=== PATIENT | female | born 1995 | race Caucasian/White ===

== ENCOUNTER 2020-11-17 20:39 | Emergency (ER) | payer MEDICAID ==
[2020-11-17 20:47] VITALS: BP 128/85
[2020-11-17] MEDS ORDERED: CLINDAMYCIN 150 MG CAPSULE PO STA (20:52)
--- NOTE | 2020-11-17 20:54 | ED Physician Documentation ---
PD HPI HEENT - Stated complaint Stated Complaint: NASAL REDNESS/SWELLING - Chief complaint Chief Complaint: Heent - History obtained from History obtained from: Patient - Additional information Additional information: 25-year-old woman who is breast-feeding but who has no possibility of per presents with right-sided nasal pain for 2 weeks. It kind of went away and then came back. It is tender to the touch. No fevers. No history of staph or MRSA. 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 - Present Medications Home Medications: Ambulatory Orders Medication Instructions Recorded Confirmed Mupirocin 2% Oint [Bactroban 2% 1 applic ELISE BID #50 gm 11/17/20 Oint] clindamycin HCL [Cleocin HCl] 300 mg PO QID #28 cap 11/17/20 - Allergies Allergies/Adverse Reactions: Allergies Allergy/AdvReac Type Severity Reaction Status Date / Time No Known Drug Allergies Allergy Verified 11/17/20 20:47 - Social History Does the pt smoke?: No Smoking Status: Never smoker Does the pt drink ETOH?: No Does the pt have substance abuse?: No - Immunizations Immunizations are current?: No - POLST Patient has POLST: No PD ED PE NORMAL - Vitals Vital signs reviewed: Yes - General General: Alert and oriented X 3, No acute distress - HEENT HEENT: Other (She has what looks like a staphylococcal infection on the inside of the right nares. Nothing is expressed to though and there is no fluctuance.) - Neck Neck: Supple, no meningeal sign, No bony TTP - Back Back: No CVA TTP, No spinal TTP - Derm Derm: Normal color, Warm and dry - Extremities Extremities: No edema, No calf tenderness / cord - Neuro Neuro: Alert and oriented X 3, Normal speech Results - Vitals Vitals: Vital Signs - 24 hr 11/17/20 20:40 Temperature 36.5 C Heart Rate 80 Respiratory 16 Rate Blood Pressure 128/85 H O2 Saturation 100 Oxygen O2 Source Room air Departure - Departure Disposition: 01 Home, Self Care Clinical Impression: Staph skin infection Condition: Good Record reviewed to determine appropriate education?: Yes Instructions: ED Staph Infec Abx Tx Only Prescriptions: Mupirocin 2% Oint [Bactroban 2% Oint] 1 applic ELISE BID #50 gm clindamycin HCL [Cleocin HCl] 300 mg PO QID #28 cap Comments: This looks like a staphylococcal infection inside of your right nares. Using clindamycin since you are breast-feeding and the antibiotic ointment as well. Return if worsening.
== END 2020-11-17 20:58 | disposition home or self-care (01) ==
LOC: ED 20:39
DX: L08.9 Local infection of the skin and subcutaneous tissue, unspecified (principal); B95.8 Unspecified staphylococcus as the cause of diseases classified elsewhere
CPT/HCPCS: 99282; 99283; A9270

== ENCOUNTER 2021-01-28 21:28 | Emergency (ER) | payer MEDICAID ==
[2021-01-28 21:36] VITALS: BP 124/87
[2021-01-28] MEDS ORDERED: levonorgestreL 1.5 MG TABLET PO STA (22:18)
--- NOTE | 2021-01-29 07:14 | ED Physician Documentation ---
History of Present Illness - Stated complaint Stated Complaint: FEMALE - Chief complaint Chief Complaint: General - History obtained from History obtained from: Patient - History of Present Illness Pain level now: 0 - Additonal information Additional information: patient states I just need emergency contraception. She had unprotected intercourse yesterday midday. She says she contacted her primary care provider but cannot be seen for another few days and patient perceives that she only has 48 hours from the UPI to take emergency contraception. She says she cannot take Alena due to breast feeding. She has no symptoms such as pain, vaginal bleeding, discharge. 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 - Present Medications Home Medications: Ambulatory Orders Medication Instructions Recorded Confirmed Mupirocin 2% Oint [Bactroban 2% 1 applic ELISE BID #50 gm 11/17/20 Oint] clindamycin HCL [Cleocin HCl] 300 mg PO QID #28 cap 11/17/20 - Allergies Allergies/Adverse Reactions: Allergies Allergy/AdvReac Type Severity Reaction Status Date / Time No Known Drug Allergies Allergy Verified 11/17/20 20:47 - Social History Does the pt smoke?: No Smoking Status: Never smoker Does the pt drink ETOH?: No Does the pt have substance abuse?: No - Immunizations Immunizations are current?: No - POLST Patient has POLST: No PD ED PE NORMAL - Vitals Vital signs reviewed: Yes - General General: Alert and oriented X 3, No acute distress, Well developed/nourished - Abdomen Abdomen: Soft, Non tender Results - Vitals Vitals: Vital Signs - 24 hr 01/28/21 21:33 Temperature 36.6 C Heart Rate 85 Respiratory 14 Rate Blood Pressure 124/87 H O2 Saturation 97 Oxygen O2 Source Room air PD MEDICAL DECISION MAKING - ED course Complexity details: considered differential, d/w patient ED course: presents asymptomatic, requesting plan B (per patient) or other similar emergency contraception. She is given 1.5 mg PO levonorgestrel and discharged. Departure - Departure Disposition: 01 Home, Self Care Clinical Impression: Emergency contraception Condition: Good Instructions: ED Contraception Emergency Plan B Discharge Date/Time: 01/28/21 22:34
== END 2021-01-28 22:34 | disposition home or self-care (01) ==
LOC: ED 21:28
DX: Z30.012 Encounter for prescription of emergency contraception (principal)
CPT/HCPCS: 99282; 99283

== ENCOUNTER 2021-03-13 11:45 | Emergency (ER) | payer MEDICAID ==
[2021-03-13 12:14] VITALS: BP 131/91
--- NOTE | 2021-03-13 12:31 | ED Physician Documentation ---
PD HPI LOWER EXT INJURY - Stated complaint Stated Complaint: RT ANKLE INJURY - Chief complaint Chief Complaint: Ext Problem - History obtained from History obtained from: Patient - History of Present Illness PD HPI LOW EXT INJURY LOCATION: Right, Ankle Type of injury: Twist (She jumped out of bed and landed onto her right ankle with the crack feeling in onset of pain yesterday evening. Continues with increased pain and swelling and unable to bear weight today.) Where injury occurred: Home Timing - onset: Last night Timing - details: Abrupt onset, Still present Worsened by: Moving, Palpating, Other (weight bearing) Associated symptoms: Swelling. 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 - Present Medications Home Medications: Ambulatory Orders Medication Instructions Recorded Confirmed Mupirocin 2% Oint [Bactroban 2% 1 applic ELISE BID #50 gm 11/17/20 Oint] clindamycin HCL [Cleocin HCl] 300 mg PO QID #28 cap 11/17/20 - Allergies Allergies/Adverse Reactions: Allergies Allergy/AdvReac Type Severity Reaction Status Date / Time No Known Drug Allergies Allergy Verified 03/13/21 12:14 - Social History Does the pt smoke?: No Smoking Status: Never smoker Does the pt drink ETOH?: No Does the pt have substance abuse?: No - Immunizations Immunizations are current?: No - POLST Patient has POLST: No PD ED PE NORMAL - Vitals Vital signs reviewed: Yes - General General: Alert and oriented X 3, Well developed/nourished - Derm Derm: Normal color, Warm and dry - Extremities Extremities: Other (right ankle with swelling and effusion lateral malleolus. Achilles and heel not tender. Some medial tenderness. Pain inhibits good stress testing. Normal pulses/color/cap refill in foot/toes.) - Neuro Neuro: No motor deficit, No sensory deficit Results - Vitals Vitals: Oxygen O2 Source Room air - Labs Labs: Laboratory Tests 03/13/21 12:45 Urine HCG, Qual NEGATIVE - Rads (name of study) right ankle Radiology: Prelim report reviewed (swelling/effusion, no fractures. ), See rad report PD MEDICAL DECISION MAKING - ED course Complexity details: reviewed results (no fractures), considered differential, d/w patient Departure - Departure Disposition: 01 Home, Self Care Clinical Impression: Ankle sprain Qualifiers: Encounter type: initial encounter Involved ligament of ankle: anterior ta lofibular ligament Laterality: right Qualified Code(s): S93.491A - Sprain of other ligament of right ankle, initial encounter Condition: Stable Record reviewed to determine appropriate education?: Yes Instructions: ED Sprain Ankle W X Ray Comments: Your x-ray does not show any fractures. Obviously with the swelling and pain, this would indicate a good sprain of the ankle and this can take several weeks or a month to heal as well. Use the ankles brace when ambulatory over the next few weeks until it feels fully healed. You may want to wear the brace even when sleeping and resting for the first several days to week to help support the ankle and reduce pain. Ice elevate and rest your ankle often to reduce swelling over the next several days. Activity as tolerated with partial to no weightbearing as needed with use of crutches. Add weightbearing as tolerated for discomfort. I would anticipate improvement over the next several days to week and then resolution over several weeks. Recheck if not improving in that timeframe. Tylenol or ibuprofen as needed for pains. Discharge Date/Time: 03/13/21 13:46
[2021-03-13] MEDS ORDERED: HYDROcod/ACETAM 5/325 MG TABLET PO STA (12:45)
[2021-03-13] MEDS ORDERED: IBUPROFEN 600 MG TABLET PO STA (12:45)
--- NOTE | 2021-03-13 12:52 | XRAY Report ---
PROCEDURE: Ankle 2 View RT INDICATIONS: jumped off the bed , now non wt bearing TECHNIQUE: 2 views of the ankle were acquired. COMPARISON: None FINDINGS: Bones: No fractures or dislocations. Ankle mortise is normally aligned. No suspicious bony lesions . Soft tissues: There is soft tissue swelling by the lateral malleolus. Small tibiotalar joint effusion . Achilles tendon appears normal. IMPRESSION: Soft tissue swelling about the lateral malleolus with a small ankle joint effusion. No f racture. Findings may represent ligamentous injury. Reviewed by: Joseph Rodríguez MD on 03/13/2021 12:51 PM PDT Approved by: Joseph Rodríguez MD on 03/13/2021 12:51 PM PDT Station ID: [id number]
[2021-03-13 12:54] LABS: HCG UR QUAL NEGATIVE
== END 2021-03-13 13:46 | disposition home or self-care (01) ==
LOC: ED 11:45
DX: S93.491A Sprain of other ligament of right ankle, initial encounter (principal); X50.1XXA Overexertion from prolonged static or awkward postures, initial encounter; Y93.39 Activity, other involving climbing, rappelling and jumping off; Y92.009 Unspecified place in unspecified non-institutional (private) residence as the place of occurrence of the external cause
CPT/HCPCS: 73600; 81025; 99282; 99283; A9270

== ENCOUNTER 2021-09-24 00:05 | Outpatient (CLI) | payer MEDICAID | END 2021-09-24 00:06 | disposition left against medical advice (07) | LOC: EMS 00:05 | DX: R42 Dizziness and giddiness (principal); R11.0 Nausea; R51.9 Headache, unspecified; R53.1 Weakness; R05.9 Cough, unspecified ==

== ENCOUNTER 2021-09-24 00:56 | Outpatient (CLI) | payer MEDICAID | END 2021-09-24 00:57 | disposition critical access hospital (66) | LOC: EMS 00:56 | DX: R11.0 Nausea (principal); R42 Dizziness and giddiness; R51.9 Headache, unspecified; R53.1 Weakness | CPT/HCPCS: A0425; A0429 ==

== ENCOUNTER 2021-09-24 01:12 | Emergency (ER) | payer MEDICAID ==
--- NOTE | 2021-09-24 02:14 | ED Physician Documentation ---
History of Present Illness - Stated complaint Stated Complaint: DIZZY - Chief complaint Chief Complaint: Neuro - Additonal information Additional information: Patient is 26-year-old female presenting to the emergency department with 1 day history cough, congestion, sinus pressure, dizziness, body aches. States fever at home for which she took ibuprofen. Reports primary complaint is prominent nasal congestion. No COVID vaccinations. Does report sick contact with known COVID-positive individual who lives in her apartment complex. 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 - Present Medications Home Medications: Ambulatory Orders Medication Instructions Recorded Confirmed No Known Home Medications 09/24/21 09/24/21 - Allergies Allergies/Adverse Reactions: Allergies Allergy/AdvReac Type Severity Reaction Status Date / Time No Known Drug Allergies Allergy Verified 09/24/21 01:26 - Social History Does the pt smoke?: Yes Smoking Status: Current every day smoker Does the pt drink ETOH?: No Does the pt have substance abuse?: No - Immunizations Immunizations are current?: No - POLST Patient has POLST: No PD ED PE NORMAL - General General: Alert and oriented X 3, No acute distress, Well developed/nourished - HEENT HEENT: Atraumatic, PERRL, Ears normal, Moist mucous membranes, Pharynx benign - Neck Neck: Supple, no meningeal sign, No bony TTP, No adenopathy, Thyroid normal, No JVD, No bruit - Cardiac Cardiac: RRR, No murmur, No gallop, No rub, Strong equal pulses - Respiratory Respiratory: No respiratory distress - Abdomen Abdomen: Normal bowel sounds, Non tender - Female Female : Deferred - Rectal Rectal: Deferred - Back Back: No CVA TTP - Derm Derm: Normal color Results - Vitals Vitals: Vital Signs - 24 hr 09/24/21 09/24/21 09/24/21 01:10 01:20 03:13 Temperature 37.0 C Heart Rate 100 97 88 Respiratory 18 16 14 Rate Blood Pressure 130/76 104/65 103/60 O2 Saturation 99 98 97 09/24/21 03:40 Temperature 37.1 C Heart Rate 105 H Respiratory 18 Rate Blood Pressure 100/57 L O2 Saturation 98 Oxygen O2 Source Room air - Labs Labs: Laboratory Tests 09/24/21 02:27 Nasal Adenovirus (PCR) NOT DETECTED Nasal B. parapertussis DNA (PCR) NOT DETECTED Nasal Coronavir 229E PCR NOT DETECTED Nasal Coronavir HKU1 PCR NOT DETECTED Nasal Coronavir NL63 PCR NOT DETECTED Nasal Coronavir OC43 PCR NOT DETECTED Nasal Enterovir/Rhinovir PCR NOT DETECTED Nasal Influenza B PCR NOT DETECTED Nasal Influenza A PCR NOT DETECTED Nasal Parainfluen 1 PCR NOT DETECTED Nasal Parainfluen 2 PCR NOT DETECTED Nasal Parainfluen 3 PCR NOT DETECTED Nasal Parainfluen 4 PCR NOT DETECTED Nasal RSV (PCR) NOT DETECTED Nasal B.pertussis DNA PCR NOT DETECTED Nasal C.pneumoniae (PCR) NOT DETECTED Carlos Human Metapneumo PCR NOT DETECTED Nasal M.pneumoniae (PCR) NOT DETECTED Nasal SARS-CoV-2 (PCR) DETECTED A PD MEDICAL DECISION MAKING - ED course Complexity details: reviewed results, d/w patient ED course: Patient is 26-year-old female presenting to the emergency department with sinus pressure and other flulike symptoms. COVID-positive in the department. Given Tylenol, nasal spray. Was offered Sudafed for oral decongestant which she declined. Discussed the diagnosis of the novel coronavirus, its expected course as well as the current CDC recommendations for quarantine both for herself and for her loved ones with whom she has been in close contact. Encourage careful follow-up with primary care. Otherwise clear return precautions and follow-up instructions given prior to discharge. Departure - Departure Disposition: 01 Home, Self Care Clinical Impression: COVID-19 Comments: Thank you for allowing us to care for you today at [facility]. Today you tested positive for the novel COVID-19 virus. It is important that you quarantine at home. Current CDC recommendation is for 5 days of quarantine from the onset of your symptoms. If at that time you are not experiencing improvement in all of your symptoms and you have been fever free for greater than 24 hours without requiring antipyretic medication such as Motrin or Tylenol at that time you are safe to leave quarantine and return to appropriately social distanced behavior. The CDC also recommends that individuals who had been in close contact with someone who is known to be posed but positiveAnd who were not fully vaccinated against the novel coronavirus should also quarantine for 5 days. For individuals who have been in close contact with the virus but who do not have symptoms and who have been fully vaccinated no quarantine is required however appropriately socially distance to behavior should be maintained. More information can be found at https://www.cdc.gov/coronavirus/2019-ncov/your-health/quarantine-isolation.html Please drink plenty of fluids and get plenty of rest. Motrin and Tylenol are excellent medications to take at home for fever, aches and pains. Please contact your primary care doctor to let them know about your diagnosis. If it anytime you develop any new or worsening symptoms please do not hesitate to return. Discharge Date/Time: 09/24/21 04:03
[2021-09-24] MEDS: ACETAMINOPHEN 325 MG TABLET PO STA (02:22)
[2021-09-24] MEDS: SODIUM CHLORIDE 0.9% 1,000 ML IV STA (02:26)
[2021-09-24] MEDS: PSEUDOEPHEDRINE 30 MG TABLET PO STA (02:29)
[2021-09-24 03:29] LABS: B. PARAPERTUSSIS- RESP PCR PAN NOT DETECTED; B. PERTUSSIS- RESP PCR PANEL NOT DETECTED; C. PNEUMONIAE- RESP PCR PANEL NOT DETECTED; CORONAVIRUS 229E-RESP PCR NOT DETECTED; CORONAVIRUS HKU1-RESP PCR NOT DETECTED; CORONAVIRUS NL63-RESP PCR NOT DETECTED; CORONAVIRUS OC43-RESP PCR NOT DETECTED; HUMAN METAPNEUMOVIRUS NOT DETECTED; INFLUENZA A- RESP PCR PANEL NOT DETECTED; INFLUENZA B - RESP PCR PANEL NOT DETECTED; M. PNEUMONIAE- RESP PCR PANEL NOT DETECTED; PARAINFLUENZA VIRUS 1 NOT DETECTED; PARAINFLUENZA VIRUS 2 NOT DETECTED; PARAINFLUENZA VIRUS 3 NOT DETECTED; PARAINFLUENZA VIRUS 4 NOT DETECTED; RHINOVIRUS/ENTEROVIRUS NOT DETECTED; RSV- RESP PCR PANEL NOT DETECTED; SARS-CoV-2 -RESP PCR PANEL DETECTED
[2021-09-24 03:49] VITALS: BP 100/57
== END 2021-09-24 04:03 | disposition home or self-care (01) ==
LOC: EDUNIT# → ED 01:12
DX: Z28.310 Unvaccinated for COVID-19 (principal); Z28.9 Immunization not carried out for unspecified reason; F17.200 Nicotine dependence, unspecified, uncomplicated
CPT/HCPCS: 87633; 99282; 99283; A9270

== ENCOUNTER 2021-10-13 13:52 | Emergency (ER) | payer MEDICAID ==
[2021-10-13 14:16] VITALS: BP 113/80
[2021-10-13 14:28] LABS: BASOPHILS % (AUTO) 0.1 %; EOSINOPHILS # (AUTO) 0.1 10^3/uL (0.0-0.7); EOSINOPHILS % (AUTO) 0.8 %; HCT - HEMATOCRIT 41.3 % (37.0-47.0); LYMPHOCYTES # (AUTO) 1.4 10^3/uL (1.5-3.5); LYMPHOCYTES % (AUTO) 15.5 %; MEAN CORPUSCULAR HEMOGLOBIN 29.6 pg (27.0-31.0); MEAN CORPUSCULAR HGB CONC 33.9 g/dL (32.0-36.0); MEAN CORPUSCULAR VOLUME 87.3 fL (81.0-99.0); MONOCYTES # (AUTO) 0.7 10^3/uL (0.0-1.0); MONOCYTES % (AUTO) 8.3 %; NEUTROPHILS # (AUTO) 6.7 10^3/uL (1.5-6.6); NEUTROPHILS % (AUTO) 74.9 %; PLT - PLATELET COUNT 270 10^3/uL (130-450); RED BLOOD COUNT 4.73 10^6/uL (4.20-5.40); RED CELL DISTRIBUTION WIDTH 13.2 % (12.0-15.0); WHITE BLOOD COUNT 8.9 x10^3/uL (4.8-10.8)
[2021-10-13 14:42] LABS: ALBUMIN 4.7 g/dL (3.2-5.5); ALBUMIN/GLOBULIN RATIO 1.6 (1.0-2.2); BILIRUBIN,TOTAL 0.8 mg/dL (0.2-1.0); CREATININE 0.6 mg/dL (0.4-1.0); POTASSIUM 3.5 mmol/L (3.5-5.0); TOTAL PROTEIN 7.6 g/dL (6.7-8.2)
[2021-10-13 15:40] LABS: BILIRUBIN,URINE NEGATIVE (NEGATIVE); GLUCOSE, URINE (UA) NEGATIVE (NEGATIVE); KETONES,URINE (UA) 40 mg/dL (NEGATIVE); LEUKOCYTE ESTERASE, URINE NEGATIVE (NEGATIVE); NITRITE,URINE NEGATIVE (NEGATIVE); OCCULT BLOOD,URINE NEGATIVE (NEGATIVE); PROTEIN,URINE NEGATIVE (NEGATIVE); UROBILINOGEN,URINE 0.2 (NORMAL) E.U./dL (NORMAL)
[2021-10-13 15:44] LABS: CLARITY,URINE CLEAR (CLEAR); HCG UR QUAL POSITIVE
--- NOTE | 2021-10-13 16:12 | ED Physician Documentation ---
History of Present Illness - Stated complaint Stated Complaint: CRAMPING - Chief complaint Chief Complaint: General - Additonal information Additional information: 26-year-old female presents emergency department to confirm . LMP 09/08/2021. She began having cramping this morning but she missed her cycle. . Patient reports to me that if she is this is not a desired and she plans to terminate this . She is denying vaginal bleeding or loss of fluids. No fevers chest pain or shortness of air. Previous pregnancies were complicated by preeclampsia. 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 - Present Medications Home Medications: Ambulatory Orders Medication Instructions Recorded Confirmed No Known Home Medications 09/24/21 09/24/21 - Allergies Allergies/Adverse Reactions: Allergies Allergy/AdvReac Type Severity Reaction Status Date / Time No Known Drug Allergies Allergy Verified 09/24/21 01:26 - Social History Does the pt smoke?: Yes Smoking Status: Current every day smoker Does the pt drink ETOH?: No Does the pt have substance abuse?: No - Immunizations Immunizations are current?: No - POLST Patient has POLST: No PD ED PE NORMAL - General General: Alert and oriented X 3, No acute distress, Well developed/nourished - HEENT HEENT: PERRL - Cardiac Cardiac: RRR, No murmur - Respiratory Respiratory: Clear bilaterally - Abdomen Abdomen: Normal bowel sounds, Soft, Non tender, Non distended Results - Vitals Vitals: Vital Signs - 24 hr 10/13/21 14:14 Temperature 36.9 C Heart Rate 92 Respiratory 18 Rate Blood Pressure 113/80 O2 Saturation 99 Oxygen O2 Source Room air - Labs Labs: Laboratory Tests 10/13/21 10/13/21 10/13/21 14:23 14:23 15:30 WBC 8.9 RBC 4.73 Hgb 14.0 Hct 41.3 MCV 87.3 MCH 29.6 MCHC 33.9 RDW 13.2 Plt Count 270 MPV 10.0 Neut # (Auto) 6.7 H Lymph # (Auto) 1.4 L [place] # (Auto) 0.7 Eos # (Auto) 0.1 Baso # (Auto) 0.0 Absolute Nucleated RBC 0.00 Nucleated RBC % 0.0 Sodium 136 Potassium 3.5 Chloride 102 Carbon Dioxide 21 Anion Gap 13.0 BUN 18 Creatinine 0.6 Estimated GFR (MDRD) 119 Glucose 90 Calcium 9.0 Total Bilirubin 0.8 AST 17 ALT 22 Alkaline Phosphatase 38 L Total Protein 7.6 Albumin 4.7 Globulin 2.9 Albumin/Globulin Ratio 1.6 Lipase 32 Urine Color YELLOW Urine Clarity CLEAR Urine pH 7.0 Ur Specific [place] 1.020 Urine Protein NEGATIVE Urine Glucose (UA) NEGATIVE Urine Ketones 40 H Urine Occult Blood NEGATIVE Urine Nitrite NEGATIVE Urine Bilirubin NEGATIVE Urine Urobilinogen 0.2 (NORMAL) Ur Leukocyte Esterase NEGATIVE Ur Microscopic Review NOT INDICATED Urine Culture Comments NOT INDICATED Urine HCG, Qual POSITIVE PD MEDICAL DECISION MAKING - ED course Complexity details: reviewed results, re-evaluated patient, d/w patient ED course: 26-year-old female who is found to be via urine hCG is requesting abortive services. She is requesting Plan B. We discussed that Plan B is only effective before occurs. She will reach out to [facility] and/or her previous OB provider. Screening labs without acute findings. Though we have not yet confirmed an IUP patient was given return precautions for vaginal bleeding suddenly severe lower abdominal pain or fainting Departure - Departure Disposition: 01 Home, Self Care Clinical Impression: First trimester Condition: Stable Comments: Flynn the urine test today does confirm that you are . Based on your last menstrual period you are perhaps 3 to 4 weeks along. As this is not a desired I encourage you to reach out to [facility] in [facility] or [place] to discuss termination options. If at any point you develop suddenly severe lower abdominal pain, have any fainting episodes chest pain then please return immediately to the ER. If this is a you wish to continue moving forward it is important you discuss this with your previous OB provider.
== END 2021-10-13 16:20 | disposition home or self-care (01) ==
LOC: ED 13:52
DX: Z32.01 Encounter for pregnancy test, result positive (principal); O99.331 Smoking (tobacco) complicating pregnancy, first trimester; F17.200 Nicotine dependence, unspecified, uncomplicated; Z3A.01 Less than 8 weeks gestation of pregnancy
CPT/HCPCS: 36415; 80053; 81001; 81003; 81025; 83690; 85025; 86900; 86901; 87086; 99281; 99284

== ENCOUNTER 2021-11-15 13:07 | Outpatient (CLI) | payer MEDICAID | END 2021-11-15 13:08 | disposition home or self-care (01) | LOC: LAB.N 13:07 | PROVIDERS: ATTEND Obstetrics & Gynecology | DX: Z32.01 Encounter for pregnancy test, result positive (principal) | CPT/HCPCS: 36415; 84702; 86900; 86901 ==

== ENCOUNTER 2022-04-23 08:00 | Outpatient (CLI) | payer MEDICAID ==
--- NOTE | 2022-04-24 10:05 | XRAY Report ---
PROCEDURE: Lumbar Spine 2 View INDICATIONS: LOW BACK PX TECHNIQUE: 3 views of the lumbar spine were acquired. COMPARISON: None. FINDINGS: Bones: 5 [id number] vertebrae are present. There is normal bony alignment. No vertebral body compression fractures. No suspicious bony lesions. Soft tissues: Overlying bowel gas pattern is normal. No suspicious soft tissue calcifications. IMPRESSION: Unremarkable lumbar spine plain films. Reviewed by: Yonis Peck MD on 04/24/2022 10:04 AM [facility] Approved by: Yonis Peck MD on 04/24/2022 10:04 AM [facility] Station ID: [id number]
== END 2022-04-23 23:59 | disposition home or self-care (01) ==
LOC: DI.N 08:00
PROVIDERS: ATTEND Registered Nurse
DX: M54.16 Radiculopathy, lumbar region (principal)

== ENCOUNTER 2022-05-14 13:02 | Outpatient (CLI) | payer MEDICAID ==
[2022-05-14 18:10] LABS: BASOPHILS % (AUTO) 0.2 %; EOSINOPHILS # (AUTO) 0.2 10^3/uL (0.0-0.7); EOSINOPHILS % (AUTO) 1.8 %; HCT - HEMATOCRIT 39.4 % (37.0-47.0); HGB - HEMOGLOBIN 12.9 g/dL (12.0-16.0); LYMPHOCYTES # (AUTO) 1.5 10^3/uL (1.5-3.5); LYMPHOCYTES % (AUTO) 18.6 %; MEAN CORPUSCULAR HEMOGLOBIN 29.3 pg (27.0-31.0); MEAN CORPUSCULAR HGB CONC 32.7 g/dL (32.0-36.0); MEAN CORPUSCULAR VOLUME 89.5 fL (81.0-99.0); MEAN PLATELET VOLUME 10.4 fL (7.9-10.8); MONOCYTES # (AUTO) 0.6 10^3/uL (0.0-1.0); MONOCYTES % (AUTO) 7.5 %; NEUTROPHILS # (AUTO) 5.8 10^3/uL (1.5-6.6); NEUTROPHILS % (AUTO) 71.5 %; PLT - PLATELET COUNT 285 10^3/uL (130-450); RED CELL DISTRIBUTION WIDTH 13.4 % (12.0-15.0); WHITE BLOOD COUNT 8.1 x10^3/uL (4.8-10.8)
[2022-05-14 18:23] LABS: ALBUMIN 4.1 g/dL (3.2-5.5); ALBUMIN/GLOBULIN RATIO 1.6 (1.0-2.2); BILIRUBIN,TOTAL 0.5 mg/dL (0.2-1.0); CREATININE 0.5 mg/dL (0.4-1.0); POTASSIUM 4.1 mmol/L (3.5-5.0); TOTAL PROTEIN 6.6 g/dL (6.7-8.2)
[2022-05-14 18:50] LABS: HCG,QUALITATIVE BLOOD POSITIVE
== END 2022-05-14 13:03 | disposition home or self-care (01) ==
LOC: LAB.N 13:02
PROVIDERS: ATTEND Physician Assistant
DX: R11.2 Nausea with vomiting, unspecified (principal)
CPT/HCPCS: 36415; 80053; 84703; 85025

== ENCOUNTER 2022-05-18 20:54 | Outpatient (CLI) | payer MEDICAID ==
--- NOTE | 2022-05-19 03:16 | Ultrasound Report ---
PROCEDURE: OB First Trimester w/TV INDICATIONS: POSITIVE TEST OUTSIDE/PRIOR DATING DATA: Last menstrual period (LMP): Unsure. TECHNIQUE: Real-time scanning was performed of the fetus and maternal pelvic organs, with image documentation. Endovaginal scanning was also performed to better visualize the fetus and maternal ovaries. COMPARISON: None. FINDINGS: Embryo: There is an intrauterine cyst likely representing a gestational sac with a mean sac diameter of approximate 1.0 cm corresponding to a calculated gestational age of 5 weeks 5 days. No yolk sac o r pole identified. There is a hypoechoic lesion suggestive of a subchorionic hematoma measuring up to 1.5 x 0.4 x 1.5 cm. Measurement variability in dating: +/- 4 weeks by LMP, +/- 7 days by mean sac diameter (use before 6 weeks gestation if crown-rump length not able to be measured), +/- 5 days by crown-rump length (6-12 weeks gestation). Maternal organs: The ovaries appear within normal size limits. There are 2 small thick walled cystic structures within the left ovary which are not well visualized on endovaginal images. IMPRESSION: 1. Probable early gestational sac within the uterus with cartilage gestational age of 5 weeks 5 days corresponding to an estimated delivery date of 01/13/2023. 2. Suspected small subchronic hematoma. Recommend clinical follow-up and consider repeat ultrasound if indicated. Reviewed by: Todd Li MD on 05/19/2022 3:14 AM PST Approved by: Todd Li MD on 05/19/2022 3:14 AM PST Station ID: [id number]
== END 2022-05-18 20:55 | disposition home or self-care (01) ==
LOC: DI 20:54
PROVIDERS: ATTEND Nurse Practitioner
DX: Z34.91 Encounter for supervision of normal pregnancy, unspecified, first trimester (principal)

== ENCOUNTER 2022-05-23 10:39 | Outpatient (CLI) | payer MEDICAID | END 2022-05-23 10:40 | disposition home or self-care (01) | LOC: LAB 10:39 | PROVIDERS: ATTEND Nurse Practitioner | DX: Z32.01 Encounter for pregnancy test, result positive (principal) | CPT/HCPCS: 36415; 84702 ==

== ENCOUNTER 2022-08-28 13:10 | Outpatient (CLI) | payer MEDICAID ==
[2022-08-28 13:24] LABS: HCT - HEMATOCRIT 40.4 % (37.0-47.0); HGB - HEMOGLOBIN 13.3 g/dL (12.0-16.0); MEAN CORPUSCULAR HEMOGLOBIN 28.8 pg (27.0-31.0); MEAN CORPUSCULAR HGB CONC 32.9 g/dL (32.0-36.0); MEAN CORPUSCULAR VOLUME 87.4 fL (81.0-99.0); MEAN PLATELET VOLUME 9.6 fL (7.9-10.8); RED BLOOD COUNT 4.62 10^6/uL (4.20-5.40); WHITE BLOOD COUNT 8.7 x10^3/uL (4.8-10.8)
== END 2022-08-28 13:11 | disposition home or self-care (01) ==
LOC: LAB 13:10
PROVIDERS: ATTEND Nurse Practitioner
DX: Z32.00 Encounter for pregnancy test, result unknown (principal); I88.9 Nonspecific lymphadenitis, unspecified
CPT/HCPCS: 36415; 84702; 85027; 86900; 86901

== ENCOUNTER 2022-08-28 13:27 | Outpatient (CLI) | payer MEDICAID ==
--- NOTE | 2022-08-28 14:35 | Ultrasound Report ---
PROCEDURE: OB First Trimester w/TV INDICATIONS: TERMINATION IN FIRST TRIMESTER OUTSIDE/PRIOR DATING DATA: Last menstrual period (LMP): 07/11/2022. LMP-based estimated date of delivery (ERICK): 04/17/2023. First dating scan (date and location): Today's exam. Estimated date of delivery (ERICK) from first dating scan: 04/24/2023. TECHNIQUE: Real-time scanning was performed of the fetus and maternal pelvic organs, with image documentation. Endovaginal scanning was also performed to better visualize the fetus and maternal ovaries. COMPARISON: None FINDINGS: Gestational sac: Intrauterine, measuring 1.08 cm, corresponding to 5 weeks 6 days. Embryo: Not visualized. Heart rate: Not applicable Measurement variability in dating: +/- 4 weeks by LMP, +/- 7 days by mean sac diameter (use before 6 weeks gestation if crown-rump length not able to be measured), +/- 5 days by crown-rump length (6-12 weeks gestation). Maternal organs: Ovaries are unremarkable. IMPRESSION: of unknown viability, given an intrauterine gestational sac without embryo visualized. This is probably due to early gestation. Trend b-HCG and sonographic follow up as necessary. Reviewed by: Tapan Peres on 08/28/2022 2:34 PM PDT Approved by: Tapan Peres on 08/28/2022 2:34 PM PDT Station ID: [id number]
== END 2022-08-28 13:28 | disposition home or self-care (01) ==
LOC: DI 13:27
PROVIDERS: ATTEND Nurse Practitioner
DX: O36.80X0 Pregnancy with inconclusive fetal viability, not applicable or unspecified (principal); Z32.00 Encounter for pregnancy test, result unknown; I88.9 Nonspecific lymphadenitis, unspecified
CPT/HCPCS: 36415; 84702; 85027; 86900; 86901

== ENCOUNTER 2022-11-28 12:18 | Emergency (ER) | payer MEDICAID ==
[2022-11-28 12:40] VITALS: BP 131/79
--- NOTE | 2022-11-28 12:51 | ED Physician Documentation ---
PD HPI URI - Stated complaint Stated Complaint: SOA/COUGH - Chief complaint Chief Complaint: Resp - History obtained from History obtained from: Patient - History of Present Illness Timing - onset: How many weeks ago (2) Timing duration: Weeks (2) Timing details: Gradual onset, Still present (cough and congestion, with wheezing has not improved over the 2 weeks.) Associated symptoms: Fever, Nasal congestion, Dry cough, Dyspnea. No: Chest pain Contributing factors: Sick contact (her 2 kids with URI/cough symptoms as well.) Improves by: MDI/nebulizer (but less effective recently .) Worsened by: Activity, Breathing Similar symptoms before: Has not had sx before Recently seen: Not recently seen Review of Systems Constitutional: reports: Fever Nose: reports: Congestion Throat: denies: Sore throat Cardiac: denies: Chest pain / pressure Respiratory: reports: Dyspnea, Cough, Wheezing GI: denies: Vomiting, Diarrhea Skin: denies: Rash PD PAST MEDICAL HISTORY - Past Medical History Cardiovascular: None Respiratory: Asthma Neuro: Migraines Musculoskeletal: None - Past Surgical History 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 - Present Medications Home Medications: Ambulatory Orders Medication Instructions Recorded Confirmed Albuterol Sulf [Ventolin Hfa 2 - 3 puffs INH Q4HR PRN #1 each 11/28/22 Inhaler] Amoxicillin 500 mg PO TID #21 cap 11/28/22 dexAMETHasone [Decadron] 4 mg PO DAILY #7 tablet 11/28/22 - Allergies Allergies/Adverse Reactions: Allergies Allergy/AdvReac Type Severity Reaction Status Date / Time No Known Drug Allergies Allergy Verified 11/28/22 12:36 - Social History Does the pt smoke?: Yes Smoking Status: Current every day smoker Does the pt drink ETOH?: No Does the pt have substance abuse?: No - Immunizations Immunizations are current?: No - POLST Patient has POLST: No PD ED PE NORMAL - Vitals Vital signs reviewed: Yes - General General: Alert and oriented X 3, No acute distress, Well developed/nourished - HEENT HEENT: Ears normal, Moist mucous membranes, Pharynx benign - Cardiac Cardiac: RRR, No murmur - Respiratory Respiratory: No respiratory distress. No: Clear bilaterally (no caorse sounds. Has scattered exp wheezing noted. ) Results - Vitals Vitals: Oxygen O2 Source Room air PD Medical Decision Making - ED course Complexity details: considered differential (URI symptoms but persistent cough and whezing despite just MDI. Can add steroids and continue the MDI. Given persistent symptoms and history of asthma, can add abx in case of bacteria secondary process.), d/w patient Departure - Departure Disposition: 01 Home, Self Care Clinical Impression: Upper respiratory infection Qualifiers: URI type: unspecified URI Qualified Code(s): J06.9 - Acute upper respiratory in fection, unspecified Exacerbation of asthma Qualifiers: Asthma severity: mild Asthma persistence: intermittent Qualified Code(s): J45.21 - Mild intermittent asthma with (acute) exacerbation Condition: Stable Record reviewed to determine appropriate education?: Yes Follow-Up: Sherita Reyes PA-C [Primary Care Provider] - Prescriptions: Albuterol Sulf [Ventolin Hfa Inhaler] 2 - 3 puffs INH Q4HR PRN #1 each PRN Reason: Shortness Of Air/Wheezing Amoxicillin 500 mg PO TID #21 cap dexAMETHasone [Decadron] 4 mg PO DAILY #7 tablet Comments: Your cough and symptoms are more prolonged than it expect from still with the chest cold given the productive cough. It is reasonable to treat with some amoxicillin antibiotic for potential bacterial secondary component. Also use your albuterol inhaler 2 to 3 puffs 4 times a day daily for the next several days to a week and then as needed. Add Decadron steroid for bronchial inflammation daily as directed. I sent your prescriptions to [facility] in [place]. I would anticipate improvement over the next few days and resolution over 5 or 6 days. Recheck if not improving in that timeframe and return if worse. Discharge Date/Time: 11/28/22 14:22
== END 2022-11-28 14:22 | disposition home or self-care (01) ==
LOC: ED 12:18
DX: J06.9 Acute upper respiratory infection, unspecified (principal); J45.21 Mild intermittent asthma with (acute) exacerbation; F17.200 Nicotine dependence, unspecified, uncomplicated
CPT/HCPCS: 99281; 99284

== ENCOUNTER 2022-12-03 20:36 | Emergency (ER) | payer MEDICAID ==
[2022-12-03 20:49] VITALS: BP 130/88
--- NOTE | 2022-12-03 22:40 | XRAY Report ---
PROCEDURE: Chest 2 View X-Ray INDICATIONS: cough TECHNIQUE: 2 views of the chest were acquired. COMPARISON: None. FINDINGS: Surgical changes and devices: None. Lungs and pleura: No pleural effusions or pneumothorax. Lungs are clear. Mediastinum: Mediastinal contours appear normal. Heart size is normal. Bones and chest wall: No suspicious bony lesions. Overlying soft tissues appear unremarkable. IMPRESSION: No acute cardiopulmonary disease. Reviewed by: Todd Li MD on 12/03/2022 10:39 PM PDT Approved by: Todd Li MD on 12/03/2022 10:39 PM PDT Station ID: [id number]
== END 2022-12-03 22:15 | disposition left against medical advice (07) ==
LOC: ED 20:36
DX: Z53.21 Procedure and treatment not carried out due to patient leaving prior to being seen by health care provider (principal); R05.9 Cough, unspecified

== ENCOUNTER 2023-06-16 14:46 | Emergency (ER) | payer MEDICAID ==
[2023-06-16 15:16] VITALS: BP 130/90; O2SAT 100
== END 2023-06-16 18:30 | disposition left against medical advice (07) ==
LOC: ED 14:46
DX: Z53.21 Procedure and treatment not carried out due to patient leaving prior to being seen by health care provider (principal)

== ENCOUNTER 2023-06-18 11:14 | Emergency (ER) | payer MEDICAID ==
--- NOTE | 2023-06-18 11:35 | ED Physician Documentation ---
History of Present Illness - Stated complaint Stated Complaint: NECK PX - Chief complaint Chief Complaint: Back Pain - History obtained from History obtained from: Patient - Additonal information Additional information: She was having low back pain/tailbone pain has been going to the chiropractor. She was not having any neck pain. On Saturday, 4 days ago went to the chiropractor who cracked her neck and since then has had severe left-sided neck pain. She also notes for the last 3 days she is "been hearing her heartbeat in her left ear" and subacutely has had left sharp chest pain especially at night over the last few weeks. Is worse when laying flat and she thinks it might be GERD. 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 - Present Medications Home Medications: Ambulatory Orders Medication Instructions Recorded Confirmed Albuterol Sulf [Ventolin Hfa 2 - 3 puffs INH Q4HR PRN #1 each 11/28/22 06/18/23 Inhaler] Turmeric 400 mg PO DAILY 06/18/23 06/18/23 - Allergies Allergies/Adverse Reactions: Allergies Allergy/AdvReac Type Severity Reaction Status Date / Time No Known Drug Allergies Allergy Verified 06/18/23 11:25 - Social History Does the pt smoke?: Yes Smoking Status: Current every day smoker Does the pt drink ETOH?: No Does the pt have substance abuse?: No - Immunizations Immunizations are current?: No - POLST Patient has POLST: No PD ED PE NORMAL - Vitals Vital signs reviewed: Yes - General General: Alert and oriented X 3, No acute distress - HEENT HEENT: PERRL, EOMI - Cardiac Cardiac: RRR, No murmur - Neuro Neuro: Alert and oriented X 3, 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 Relevant findings are: Rate: Rate (enter#) (73) Rhythm: NSR (w pvcs) [place]: Normal Intervals: Normal DE QRS: Normal Ischemia: Normal ST segments - Labs Labs: Laboratory Tests 06/18/23 06/18/23 11:42 11:42 WBC 6.1 RBC 4.78 Hgb 13.7 Hct 42.5 MCV 88.9 MCH 28.7 MCHC 32.2 RDW 13.1 Plt Count 247 MPV 9.9 Neut # (Auto) 3.7 Lymph # (Auto) 1.6 [place] # (Auto) 0.6 Eos # (Auto) 0.1 Baso # (Auto) 0.0 Absolute Nucleated RBC 0.00 Nucleated RBC % 0.0 Sodium 138 Potassium 3.7 Chloride 103 Carbon Dioxide 29 Anion Gap 6.0 BUN 18 Creatinine 0.6 Estimated GFR (MDRD) 117 Glucose 68 L Calcium 9.4 - Rads (name of study) CT angiography of the neck was negative Relevant Findings:: Final report received, EMP independent interpretation of test PD Medical Decision Making - ED course ED course: She has left neck pain after chiropractic manipulation of her neck. Certainly could just be muscular, but vertebral dissection is on the differential and we will do CTA for same. She is having PVCs on her EKG and this was discussed with her. She says it is worse when she has more caffeine. CTA of the neck was negative. CBC/BMP were u nremarkable. Departure - Departure Disposition: 01 Home, Self Care Clinical Impression: Injury of neck Condition: Good Record reviewed to determine appropriate education?: Yes Instructions: ED Sprain Strain Neck Comments: You were seen today for neck injury after chiropractic manipulation. Thankfully a CT angiography of the neck was negative with no sign of vertebral dissection. He also have noted some chest pain and abnormal heartbeats. You are having. Premature ventricular contractions which is generally benign process. Try to avoid caffeine and other stimulants including nicotine. Call your doctor to arrange a follow-up appointment, make the next available appointment. In the interim, return anytime if worse or if new symptoms develop.
[2023-06-18] MEDS ORDERED: iohexoL-300 100 ML VIAL ONE (11:39)
[2023-06-18 11:50] LABS: BASOPHILS % (AUTO) 0.3 %; EOSINOPHILS # (AUTO) 0.1 10^3/uL (0.0-0.7); EOSINOPHILS % (AUTO) 2.1 %; HCT - HEMATOCRIT 42.5 % (37.0-47.0); HGB - HEMOGLOBIN 13.7 g/dL (12.0-16.0); LYMPHOCYTES # (AUTO) 1.6 10^3/uL (1.5-3.5); LYMPHOCYTES % (AUTO) 25.8 %; MEAN CORPUSCULAR HEMOGLOBIN 28.7 pg (27.0-31.0); MEAN CORPUSCULAR HGB CONC 32.2 g/dL (32.0-36.0); MEAN CORPUSCULAR VOLUME 88.9 fL (81.0-99.0); MEAN PLATELET VOLUME 9.9 fL (7.9-10.8); MONOCYTES # (AUTO) 0.6 10^3/uL (0.0-1.0); MONOCYTES % (AUTO) 10.2 %; NEUTROPHILS # (AUTO) 3.7 10^3/uL (1.5-6.6); NEUTROPHILS % (AUTO) 61.3 %; PLT - PLATELET COUNT 247 10^3/uL (130-450); RED BLOOD COUNT 4.78 10^6/uL (4.20-5.40); RED CELL DISTRIBUTION WIDTH 13.1 % (12.0-15.0); WHITE BLOOD COUNT 6.1 x10^3/uL (4.8-10.8)
[2023-06-18] MEDS ORDERED: KETOROLAC 15 MG/ML VIAL IVP STA (11:58)
[2023-06-18 12:15] LABS: CALCIUM 9.4 mg/dL (8.5-10.3); CREATININE 0.6 mg/dL (0.6-1.3); POTASSIUM 3.7 mmol/L (3.5-4.5)
[2023-06-18 12:38] VITALS: BP 126/77; O2SAT 99
--- NOTE | 2023-06-18 14:18 | CT Report ---
PROCEDURE: Angio Neck INDICATIONS: L neck pain p chiropractor CONTRAST: Omni 300 80ml TECHNIQUE: After the administration of intravenous contrast, 1.5 mm axial sections acquired from the aortic arch to the [place] of [place]. Coronal 3-D maximum intensity projection (MIP) and/or volume rendering ref ormats were then performed. For radiation dose reduction, the following was used: automated exposur e control, adjustment of mA and/or kV according to patient size. COMPARISON: None. FINDINGS: Image quality: Degraded by motion artifact. Carotid system: The great vessels demonstrate a conventional anatomy as they arise from the aortic a rch. The origins of the common carotid arteries appear patent. The common carotid arteries demonstr ate normal calibers and courses. The bifurcation regions appear normal bilaterally. The internal ca rotid arteries demonstrate normal caliber and course. Posterior circulation: The origins of the vertebral arteries appear patent. The more superior porti ons of the vertebral arteries demonstrate normal course and caliber. They join to form a normal appe aring basilar artery. Soft tissues: Visualized neck soft tissues demonstrate no suspicious abnormalities. The thyroid is normal in size and there are no incidental findings. Bones: No suspicious bony lesions. Visualized cervical spine appears normally aligned. IMPRESSION: No acute process involving the arterial tree of the head and neck. The estimate of stenosis included in the report of the imaging study was calculated using the NASCET method CLINICAL RECOMMENDATION STATEMENTS: In patients <35 years with an ITN detected on CT, MRI, or extrathyroidal ultrasound, the Committee re commends further evaluation with dedicated thyroid ultrasound if the nodule is "e1 cm and has no susp icious imaging features, and if the patient has normal life expectancy. In patients "e35 years with an ITN detected on CT, MRI, or extrathyroidal ultrasound, the Committee r ecommends further evaluation with dedicated thyroid ultrasound if the nodule is "e1.5 cm and has no s uspicious imaging features, and if the patient has normal life expectancy. (ACR, 2014) Reviewed by: Ed Anne MD on 06/18/2023 2:16 PM PST Approved by: Ed Anne MD on 06/18/2023 2:16 PM PST Station ID: [id number]
[2023-06-18] MEDS ORDERED: iohexoL-300 100 ML VIAL IVP ONE (16:10)
== END 2023-06-18 14:47 | disposition home or self-care (01) ==
LOC: ED 11:14
DX: S19.9XXA Unspecified injury of neck, initial encounter (principal); X58.XXXA Exposure to other specified factors, initial encounter; F17.200 Nicotine dependence, unspecified, uncomplicated
CPT/HCPCS: 36415; 70498; 80048; 85025; 93005; 96374; 99283; 99284; Q9967

== ENCOUNTER 2024-01-09 00:05 | Emergency (ER) | payer MEDICAID ==
[2024-01-09 00:16] VITALS: O2SAT 98
[2024-01-09] MEDS ORDERED: SODIUM CHLORIDE 0.9% 1,000 ML IV STA (00:16)
[2024-01-09] MEDS ORDERED: KETOROLAC 15 MG/ML VIAL IVP STA (00:16)
[2024-01-09 00:24] LABS: BILIRUBIN,URINE NEGATIVE (NEGATIVE); GLUCOSE, URINE (UA) NEGATIVE (NEGATIVE); KETONES,URINE (UA) NEGATIVE (NEGATIVE); LEUKOCYTE ESTERASE, URINE NEGATIVE (NEGATIVE); NITRITE,URINE NEGATIVE (NEGATIVE); OCCULT BLOOD,URINE LARGE (NEGATIVE); PROTEIN,URINE NEGATIVE (NEGATIVE); UROBILINOGEN,URINE 0.2 (NORMAL) E.U./dL (NORMAL)
[2024-01-09 00:27] LABS: HCG UR QUAL NEGATIVE
[2024-01-09 00:28] LABS: BASOPHILS % (AUTO) 0.5 %; EOSINOPHILS # (AUTO) 0.2 10^3/uL (0.0-0.7); EOSINOPHILS % (AUTO) 2.7 %; HCT - HEMATOCRIT 41.7 % (37.0-47.0); HGB - HEMOGLOBIN 13.4 g/dL (12.0-16.0); LYMPHOCYTES # (AUTO) 2.2 10^3/uL (1.5-3.5); LYMPHOCYTES % (AUTO) 29.6 %; MEAN CORPUSCULAR HEMOGLOBIN 28.5 pg (27.0-31.0); MEAN CORPUSCULAR HGB CONC 32.1 g/dL (32.0-36.0); MEAN CORPUSCULAR VOLUME 88.5 fL (81.0-99.0); MEAN PLATELET VOLUME 10.2 fL (7.9-10.8); MONOCYTES # (AUTO) 0.6 10^3/uL (0.0-1.0); MONOCYTES % (AUTO) 8.5 %; NEUTROPHILS # (AUTO) 4.4 10^3/uL (1.5-6.6); NEUTROPHILS % (AUTO) 58.4 %; PLT - PLATELET COUNT 265 10^3/uL (130-450); RED BLOOD COUNT 4.71 10^6/uL (4.20-5.40); RED CELL DISTRIBUTION WIDTH 13.1 % (12.0-15.0); WHITE BLOOD COUNT 7.4 x10^3/uL (4.8-10.8)
[2024-01-09 00:31] LABS: CLARITY,URINE CLEAR (CLEAR)
[2024-01-09 00:33] LABS: BACTERIA,URINE None Seen /HPF (None Seen); RBC,URINE 0-5 /HPF (0-5); SQUAMOUS EPITHELIAL CELL,UR MANY Squamous (<= Few); WBC,URINE 0-3 /HPF (0-5)
--- NOTE | 2024-01-09 00:37 | ED Physician Documentation ---
History of Present Illness - Stated complaint Stated Complaint: STOMACH/BACK PX/D - Chief complaint Chief Complaint: Abd Pain - History obtained from History obtained from: Patient - Additonal information Additional information: 28-year-old woman with history of endometriosis, past surgical history of 2 C- sections presents with bilateral lower abdominal cramping pain and left lower back pain that is positional, worse with twisting and bending, over the past 2 to 3 days. Denies nausea vomiting fever or urinary symptoms. She is currently menstruating and on day 6 of her period. Patient does have some loose stools. She states that her partner has similar symptoms. 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 - Present Medications Home Medications: Ambulatory Orders Medication Instructions Recorded Confirmed Albuterol Sulf [Ventolin Hfa 2 - 3 puffs INH Q4HR PRN #1 each 11/28/22 06/18/23 Inhaler] Turmeric 400 mg PO DAILY 06/18/23 06/18/23 - Allergies Allergies/Adverse Reactions: Allergies Allergy/AdvReac Type Severity Reaction Status Date / Time No Known Drug Allergies Allergy Verified 01/09/24 00:15 - Social History Does the pt smoke?: Yes Smoking Status: Current every day smoker Does the pt drink ETOH?: No Does the pt have substance abuse?: No - Immunizations Immunizations are current?: No - POLST Patient has POLST: No PD ED PE NORMAL - Vitals Vital signs reviewed: Yes - General General: Alert and oriented X 3, No acute distress, Well developed/nourished - HEENT HEENT: Atraumatic, PERRL, EOMI - Neck Neck: Supple, no meningeal sign - Cardiac Cardiac: RRR - Respiratory Respiratory: No respiratory distress, Clear bilaterally - Abdomen Abdomen: Non tender, Non distended - Back Back: No CVA TTP - Derm Derm: Normal color, Warm and dry - Neuro Neuro: Alert and oriented X 3 - Psych Psych: Normal mood, Normal affect Results - Vitals Vitals: Vital Signs - 24 hr 01/09/24 00:12 Temperature 37.2 C Heart Rate 87 Respiratory 20 Rate Blood Pressure 123/91 H O2 Saturation 98 Oxygen O2 Source Room air - Labs Labs: Laboratory Tests 01/09/24 01/09/24 01/09/24 00:22 00:22 00:23 WBC 7.4 RBC 4.71 Hgb 13.4 Hct 41.7 MCV 88.5 MCH 28.5 MCHC 32.1 RDW 13.1 Plt Count 265 MPV 10.2 Neut # (Auto) 4.4 Lymph # (Auto) 2.2 [place] # (Auto) 0.6 Eos # (Auto) 0.2 Baso # (Auto) 0.0 Absolute Nucleated RBC 0.00 Nucleated RBC % 0.0 Urine Color YELLOW Urine Clarity CLEAR Urine pH 6.0 Ur Specific [place] 1.025 Urine Protein NEGATIVE Urine Glucose (UA) NEGATIVE Urine Ketones NEGATIVE Urine Occult Blood LARGE H Urine Nitrite NEGATIVE Urine Bilirubin NEGATIVE Urine Urobilinogen 0.2 (NORMAL) Ur Leukocyte Esterase NEGATIVE Urine RBC 0-5 Urine WBC 0-3 Ur Squamous Epith Cells MANY Squamous H Urine Bacteria None Seen Ur Microscopic Review INDICATED Urine Culture Comments NOT INDICATED Urine HCG, Qual NEGATIVE PD Medical Decision Making - ED course ED course: 28-year-old woman presents with left lower back pain and bilateral lower abdominal cramping and diarrhea. Known sick contact (partner with similar symptoms). Likely viral in etiology, with possible muscular lower back pain. Patient declined symptomatic care. Her lab work and urinalysis are normal. Plan to follow-up outpatient with her primary care provider. Symptomatic care discussed. Return precautions given. Departure - Departure Clinical Impression: Abdominal pain, Diarrhea, Back pain Condition: Stable Instructions: ED Diarrhea Viral Comments: You were seen in the emergency department for medical evaluation. Your labwork looked good. Please follow-up with your primary care provider and return to the emergency department if you have any new or worsening symptoms or other concerns.
[2024-01-09 00:49] LABS: ALBUMIN 4.3 g/dL (3.2-5.5); BILIRUBIN,TOTAL 0.2 mg/dL (0.2-1.0); CALCIUM 9.6 mg/dL (8.5-10.3); CREATININE 0.7 mg/dL (0.6-1.3); POTASSIUM 3.5 mmol/L (3.5-4.5); TOTAL PROTEIN 6.4 g/dL (6.4-8.9)
[2024-01-09 01:17] VITALS: BP 122/88
== END 2024-01-09 01:03 | disposition home or self-care (01) ==
LOC: ED 00:05
DX: R10.9 Unspecified abdominal pain (principal); M54.50 Low back pain, unspecified; R19.7 Diarrhea, unspecified; F17.200 Nicotine dependence, unspecified, uncomplicated
CPT/HCPCS: 36415; 80053; 81001; 81003; 81025; 83690; 85025; 87086; 99283